=== PATIENT | female | born 1970 | race African-American/Black ===

== ENCOUNTER 2019-06-18 14:33 | Outpatient (CLI) | payer OTHER ==
--- NOTE | 2019-06-18 15:50 | RAD ---
CERVICAL SPINE 5 VIEWS: HISTORY: Radiculopathy. FINDINGS: Limited evaluation of the cervical spine based on the images provided. No obvious fractures or malal ignment. Predental space cannot be assessed. There is moderate degenerative disk disease at C3-C4, C4-C5. There does appear to be facet arthropathy on the AP projection. IMPRESSION: Limited evaluation. Consider further evaluation with MRI of the cervical spine. POS: CET
== END 2019-06-18 14:34 | disposition home or self-care (01) ==
LOC: MADRAD 14:33
PROVIDERS: ATTEND Family Medicine
DX: M54.12 Radiculopathy, cervical region (principal)
CPT/HCPCS: 72040

== ENCOUNTER 2020-04-28 15:02 | Outpatient (CLI) | payer OTHER ==
--- NOTE | 2020-04-28 16:05 | RAD ---
TWO VIEWS CHEST: Date: 04-28-2020 PROVIDED CLINICAL HISTORY: Morbid obesity. FINDINGS: No comparisons. Evaluation is limited by patient body habitus. The cardiac silhouette appears enlarge d. Prominence of the pulmonary vasculature and pulmonary interstitium. No lobar consolidation, pleura l fluid, or pneumothorax apparent. IMPRESSION: Cardiomegaly and findings suggesting congestive failure. POS: AH
[2020-04-28 16:49] LABS: ALT (SGPT) 27 U/L (8-55); AST (SGOT) 14 U/L (5-34); Albumin 4.2 g/dL (3.5-5.0); Alkaline Phosphatase 79 U/L (40-110); Anion Gap 18 mmol/L (10-20); BUN (Urea Nitrogen) 11 mg/dL (7.0-18.7); Bilirubin, Total 0.7 mg/dL (0.2-1.2); Calc. Creatinine Clearance 0 mL/min (70-130); Calcium 9.6 mg/dL (7.8-10.44); Carbon Dioxide 31 mmol/L (22-29); Cardiac Risk 4.3 (Less than 4.5); Chloride 96 mmol/L (98-107); Cholesterol 191 mg/dl (< 200 Desired); Estimated GFR-MDRD 71; Globulin 3.5 g/dL (2.4-3.5); Glucose 187 mg/dL (70-105); HDL Cholesterol 44 mg/dL (>60 Neg Risk); LDL Cholesterol, Calculated 131 mg/dL; Potassium 4.3 mmol/L (3.5-5.1); Protein, Total 7.7 g/dL (6.0-8.3); Sodium 141 mmol/L (136-145); Triglycerides 80 mg/dL (Less than 150)
[2020-04-28 16:51] LABS: #Basophils 0.1 thou/uL (0.0-0.2); #Lymphocytes 2.3 thou/uL (1.20-3.40); #Monocytes 0.6 thou/uL (0.11-0.59); #Neutrophils 3.5 thou/uL (1.40-6.50); %Eosinophils 0.5 % (0.0-10.0); %Lymphocytes 36.1 % (21.0-51.0); %Monocytes 8.7 % (0.0-10.0); %Neutrophils 53.7 % (42.0-75.0); Hemoglobin 13.3 g/dL (12.0-16.0); Mean Corpuscular HGB CONC 29.7 g/dL (32.0-36.0); Mean Corpuscular Volume 87.6 fL (78.0-98.0); Mean Platelet Volume 8.9 fL (7.4-10.4); Platelet Count 228 thou/uL (130-400); RBC Distribution Width 17.7 % (11.5-14.5); White Blood Cell (WBC) Count 6.5 thou/uL (4.8-10.8)
[2020-04-28 21:45] LABS: Hemoglobin A1c 10.3 % (4.0-6.0)
== END 2020-04-28 15:03 | disposition home or self-care (01) ==
LOC: MADRAD 15:02
PROVIDERS: ATTEND Family Medicine
DX: E78.5 Hyperlipidemia, unspecified (principal); R06.00 Dyspnea, unspecified; E66.01 Morbid (severe) obesity due to excess calories; I10 Essential (primary) hypertension; I51.7 Cardiomegaly
CPT/HCPCS: 36415; 71046; 80053; 80061; 83036; 83880; 84443; 85025

== ENCOUNTER 2020-11-20 09:40 | Outpatient (CLI) | payer OTHER | END 2020-11-20 09:41 | disposition home or self-care (01) | LOC: MADRAD 09:40 | PROVIDERS: ATTEND Family Medicine | DX: M25.562 Pain in left knee (principal); M25.561 Pain in right knee ==